=== PATIENT | female | born 2000 | race Two or more races ===

== ENCOUNTER 2020-05-11 16:12 | Inpatient (IN) | payer MEDICAID, OTHER ==
[~2020-05-11] VITALS: Ht 160 cm; Wt 62.6 kg
[~2020-05-11 16:12] MED LIST: LEVO750T46 MT
[2020-05-11] MEDS ORDERED: SODIUM CHLORIDE 0.9% 1,000 ML IV ONE (18:23)
[2020-05-11] MEDS ORDERED: ONDANSETRON HCL 4MG/2ML INJ IV STA (18:23)
[2020-05-11] MEDS ORDERED: HYDROCODONE/ACETAMINOPHEN 5/325MG TABLET PO STA (18:23)
[2020-05-11] MEDS ORDERED: VANCOMYCIN 1 G PREMIX 200 ML IV ONE (18:30)
[2020-05-11 18:43] LABS: BASOPHILS % 1.1 % (0.0-2.0); EOSINOPHILS % 0.9 % (0.0-5.0); HEMATOCRIT. 35.9 % (36.0-48.0); HEMOGLOBIN. 12.4 g/dL (12.0-16.0); LYMPHOCYTES % 32.4 % (20.0-50.0); MEAN CORPUSCULAR HEMOGLOBIN 30.1 pg (28.0-32.0); MONOCYTES % 8.1 % (2.0-8.0); NEUTROPHILS % 57.5 % (40.0-76.0); PLATELET 560 x1000/uL (130-400); RED BLOOD CELL COUNT 4.13 mill/uL (4.2-5.4); RED CELL DISTRIBUTION WIDTH 13.8 % (11.6-14.6)
[2020-05-11 18:46] LABS: CHLORIDE 110 mEq/L (98-107)
[2020-05-11 18:49] LABS: HCG SCREEN NEGATIVE
[2020-05-11 19:08] LABS: CLARITY URINE CLEAR (CLEAR); COLOR URINE YELLOW (YELLOW); KETONES URINE NEGATIVE (NEGATIVE); LEUKOCYTE ESTERASE URINE NEGATIVE (NEGATIVE); NITRITE URINE NEGATIVE (NEGATIVE); OCCULT BLOOD URINE NEGATIVE (NEGATIVE); PH URINE 6.5 (4.5-8.0); PROTEIN URINE NEGATIVE (NEGATIVE); SPECIFIC GRAVITY URINE 1.025 (1.005-1.030)
[2020-05-11] MEDS ORDERED: KETOROLAC 30MG/ML VIAL IV SCH (19:30)
[2020-05-12] VITALS: BP 116/73
[2020-05-12] MEDS ORDERED: HYDROCODONE/ACETAMINOPHEN 5/325MG TABLET PO PRN (02:30)
[2020-05-12 04:00] VITALS: BP 109/59
[2020-05-12 08:00] VITALS: BP 108/68
[2020-05-12 12:00] VITALS: BP 120/79
[2020-05-12 16:00] VITALS: BP 108/59
[2020-05-12] MEDS ORDERED: IPRATROPIUM/ALBUTEROL 0.5-3(2.5)MG/3ML NEB HHN PRN (16:30)
[2020-05-12] MEDS ORDERED: DOCUSATE SODIUM 100MG CAPSULE PO PRN (16:30)
[2020-05-12] MEDS ORDERED: GUAIFENESIN 200MG/10ML SUGAR FREE UDC PO PRN (16:30)
[2020-05-12] MEDS ORDERED: CLONIDINE 0.1MG TABLET PO PRN (16:30)
[2020-05-12] MEDS ORDERED: LORAZEPAM 0.5MG TABLET PO PRN (16:30)
[2020-05-12] MEDS ORDERED: ACETAMINOPHEN 325MG TABLET PO PRN (16:30)
[2020-05-12] MEDS ORDERED: ONDANSETRON HCL 4MG/2ML INJ IV PRN (16:30)
[2020-05-12] MEDS: LEVOFLOXACIN 500MG TABLET PO SCH (17:25)
[2020-05-12] MEDS: ENOXAPARIN 40MG/0.4ML SYR SUBCUT SCH (17:25)
[2020-05-12 20:00] VITALS: BP 116/69
[2020-05-12] MEDS: SULFAMETHOXAZOLE/TRIMETHOPRIM 800/160MG TABLET PO SCH (20:16)
[2020-05-13] VITALS: BP 112/72
[2020-05-13 04:00] VITALS: BP 125/71
[2020-05-13 06:11] LABS: BASOPHILS % 1.2 % (0.0-2.0); EOSINOPHILS % 0.7 % (0.0-5.0); HEMATOCRIT. 33.4 % (36.0-48.0); HEMOGLOBIN. 11.6 g/dL (12.0-16.0); LYMPHOCYTES % 42.8 % (20.0-50.0); MEAN CORPUSCULAR HEMOGLOBIN 29.9 pg (28.0-32.0); MEAN CORPUSCULAR VOLUME 85.9 fL (81.0-99.0); MEAN PLATELET VOLUME 7.3 fl (7.4-10.4); MONOCYTES % 9.9 % (2.0-8.0); NEUTROPHILS % 45.4 % (40.0-76.0); PLATELET 453 x1000/uL (130-400); RED BLOOD CELL COUNT 3.89 mill/uL (4.2-5.4); RED CELL DISTRIBUTION WIDTH 13.5 % (11.6-14.6)
[2020-05-13 06:12] LABS: CHLORIDE 108 mEq/L (98-107)
[2020-05-13 08:00] VITALS: BP 109/65
[2020-05-13] MEDS: SULFAMETHOXAZOLE/TRIMETHOPRIM 800/160MG TABLET PO SCH (08:51)
[2020-05-13 12:00] VITALS: BP 104/68
[2020-05-13] MEDS ORDERED: LEVO500T2 PO (14:03)
[2020-05-13] MEDS ORDERED: SULF1TAB44 PO (14:03)
[2020-05-13 16:00] VITALS: BP 105/54
[2020-05-13] MEDS: LEVOFLOXACIN 500MG TABLET PO SCH (17:01)
[2020-05-13] MEDS: ENOXAPARIN 40MG/0.4ML SYR SUBCUT SCH (17:02)
[2020-05-13] MEDS ORDERED: POTASSIUM CHLORIDE 20MEQ TABLET SR PO NR (18:45)
[2020-05-13 19:28] VITALS: BP 117/65
== END 2020-05-13 21:05 | disposition home health service (06) | DRG 364 ==
LOC: ER 16:12 → 5WST 19:19 → ENRESERV 22:58
PROVIDERS: ADMIT Internal Medicine; ATTEND Internal Medicine
PROC: 0LDW0ZZ Extraction of Left Foot Tendon, Open Approach (ICD-10-PCS; principal; 2020-05-12)
DX: L03.116 Cellulitis of left lower limb (principal); L97.528 Non-pressure chronic ulcer of other part of left foot with other specified severity; L02.612 Cutaneous abscess of left foot; B35.3 Tinea pedis
CPT/HCPCS: 36415; 73630; 80048; 80053; 81003; 84703; 85025; 87070; 96365; 97022; 97161; 99285; J1650; J1885; J2405; J3370; J7030